=== PATIENT | female | born 1970 | race Caucasian/White ===

== ENCOUNTER → 2024-05-20 | Outpatient (CLI) | payer OTHER ==
--- NOTE | 2024-05-20 09:01 | CT ---
EXAMINATION TYPE: CT soft tissue neck w con DATE OF EXAM: 05/20/2024 8:17 AM COMPARISON: None. CLINICAL INDICATION: Female, 53 years old with history of R22.1 LOCALIZED SWELLING, MASS AND LUMP, NE CK; PHH, Localized swelling, mass and lump, neck mass near ear on right side TECHNIQUE: Standard enhanced CT of the neck. Axial sections with coronal and sagittal reformats were obtained. Contrast used:100 ml mL of Isovue 300 with IV Contrast, (None if empty) Oral contrast used: (None if empty) CT DLP: 256.20 mGycm, Automated exposure control for dose reduction was used. FINDINGS: Brain: Visualized portions are grossly unremarkable. Orbits: Unremarkable Sinuses: Grossly unremarkable. Spaces of the neck: Right superficial parotid gland 18 x 18 mm thin-walled cyst with central low dens ity compatible with simple fluid. The left parotid gland is unremarkable. Musculoskeletal: No acute osseous pathology. Lymph nodes: Multiple nonenlarged lymph nodes are seen along both anterior chains of the neck. Vascular structures: Visualized major arteries are patent without evidence of aneurysm. Thoracic Inlet/airway: Airway is patent. Mild paraseptal emphysema changes in lung apices. Soft tissues/Thyroid: Thyroid and remainder of the soft tissues are unremarkable. Other: none. IMPRESSION: Right superficial parotid gland 18 x 18 mm simple appearing cyst correlating with palpable abnormalit y. Consider further evaluation with ultrasound guided biopsy. No lymphadenopathy in the neck identifi ed. [facility], , 05/20/2024 8:58 AM
== END | disposition home or self-care (01) ==
LOC: RADCTMAIN 07:32
PROVIDERS: ATTEND Otolaryngology
DX: J43.8 Other emphysema (principal); R22.1 Localized swelling, mass and lump, neck
CPT/HCPCS: 70491; Q9967